=== PATIENT | female | born 1985 ===

== ENCOUNTER 2018-12-18 15:05 | Emergency (ER) | payer MEDICAID, OTHER ==
[2018-12-18 16:44] VITALS: BMI 33.5
[2018-12-18 16:46] VITALS: BP 157/94; PULSE 72; TEMP 98.2; O2SAT 100
--- NOTE | 2018-12-18 17:41 | C.PDOC ---
History Of Present Illness 33-year-old female presents to the ED for evaluation of left lateral ankle pain. Patient states she missed a step and with left lateral pronation yesterday. She denies head injury, LOC, extremity numbness/weakness. Time Seen by Provider: 12/18/18 17:15 Chief Complaint (Nursing): Lower Extremity Problem/Injury History Per: Patient History/Exam Limitations: no limitations Onset/Duration Of Symptoms: Hrs Current Symptoms Are (Timing): Still Present Additional History Per: Patient Past Medical History Reviewed: Historical Data, Nursing Documentation, Vital Signs Vital Signs: Last Vital Signs Temp 98.2 F 12/18/18 16:37 Pulse 72 12/18/18 16:37 Resp 17 12/18/18 16:37 BP 157/94 H 12/18/18 16:37 Pulse Ox 100 12/18/18 16:37 - Medical History PMH: Anemia, Fractures (LEFT ARM), Gall Bladder Disease Denies: Chronic Kidney Disease Surgical History: Cholecystectomy, Endoscopy - [facility] Procedures ESOPHAGOGASTRODUODENOSCOPY [EGD] W/CLOSED BIOPSY (12/24/14) INCISE BARTHOLIN'S GLAND (05/09/15) LAPAROSCOPIC CHOLECYSTECTOMY (05/16/15) Family History: States: Unknown Family Hx - Social History Hx Tobacco Use: No Hx Alcohol Use: Yes Hx Substance Use: No - Immunization History Hx Tetanus Toxoid Vaccination: No Hx Influenza Vaccination: No Hx Pneumococcal Vaccination: No Review Of Systems Musculoskeletal: Positive for: Other (left lateral ankle pain ) Neurological: Negative for: Weakness, Numbness, Other (head injury, LOC ) Physical Exam - Physical Exam Appears: Non-toxic, No Acute Distress Skin: Normal Color, Warm, Dry Head: Atraumatic, Normacephalic Extremity: Capillary Refill (less than 2 seconds ), Other (soft tissue swelling at the lateral left ankle ) Pulses: Left Dorsalis Pedis: Normal, Right Dorsalis Pedis: Normal Neurological/Psych: Normal Speech, Normal Cognition ED Course And Treatment O2 Sat by Pulse Oximetry: 100 (on RA ) Pulse Ox Interpretation: Normal - Other Rad left ankle XR X-Ray: Viewed By Me, Read By Radiologist Interpretation: IMPRESSION: Soft tissue swelling without acute articular or osseous abnormality. Medical Decision Making Medical Decision Making: L lateral ankle sprain no fx Disposition Doctor Will See Patient In The: Office Counseled Patient/Family Regarding: Studies Performed, Diagnosis - Disposition Referrals: Andrade Gomez MD [Staff Provider] - Rodney Gipson MD [Medical Doctor] - Disposition: HOME/ ROUTINE Disposition Time: 17:41 Condition: GOOD Additional Instructions: x-ray NEGATIVE for fracture ice packs 1/2 hour per hour, nothing hot motrin/Advil 400-600 mg every 6 hours as needed outpatient follow-up with Dr. Gomez- Ortho- as needed Call for appt. Instructions: Ankle Sprain Forms: [employer] ([place]ian) - Clinical Impression Clinical Impression: Ankle sprain - Scribe Statement The provider has reviewed the documentation as recorded by the Scribe (Cheri Spence) Provider Attestation: All medical record entries made by the Scribe were at my direction and personally dictated by me. I have reviewed the chart and agree that the record accurately reflects my personal performance of the history, physical exam, medical decision making, and the department course for this patient. I have also personally directed, reviewed, and agree with the discharge instructions and disposition.
[2018-12-18 17:58] VITALS: RESP 18
--- NOTE | 2018-12-18 18:32 | RAD ---
Date of service: 12/18/2018 PROCEDURE: Left Ankle Radiographs. HISTORY: Posttraumatic left lateral ankle pain. COMPARISON: None available. TECHNIQUE: 3 views obtained. FINDINGS: BONES: Normal. No fracture. JOINTS: Normal. No osteoarthritis. Ankle mortise maintained. Talar dome intact SOFT TISSUES: Lateral soft tissue swelling without distal fibular or talar abnormality. OTHER FINDINGS: None. IMPRESSION: Soft tissue swelling without acute articular or osseous abnormality. Concordant results with the preliminary interpretation rendered by the emergency department physician procedure.
== END 2018-12-18 17:59 | disposition home or self-care (01) ==
LOC: C.ER 15:05
DX: S93.402A Sprain of unspecified ligament of left ankle, initial encounter (principal); X58.XXXA Exposure to other specified factors, initial encounter